=== PATIENT | male | born 1965 | race Caucasian/White ===

== ENCOUNTER 2016-07-09 22:04 | Inpatient (IN) | payer OTHER ==
--- NOTE | ~2016-07-09 | CR173 ---
[facility] A Service of [facility] [place] & [facility] RADIOLOGY TEXT RESULTS PATIENT: UZMA ANAYA LOCATION: [facility] [id number] : [birth year] UNIT #: [id number] AGE: [address]: Martir Loja MD SEX: M ORDER DR: [id number] [facility] [address] [place], [place] [address] [id number] MR#: [id number] #: [id number] NAME: UZMA ANAYA : 1965 SEX: M STUDY DATE/TIME: 07/10/2016 4:53 UNIT: [facility] ROOM: 06757 STUDY DESCRIPTION: CR Knee 3 Views Rt Attending Physician: Martir Loja M.D. Ordering Physician: Israel Kumar Aprn Primary Care Physician: Primary Care Physician No MEDICAL IMAGING REPORT This report is preliminary unless electronic signature is present EXAM Right knee series, 07/10/2016 HISTORY 51-year-old male in the ED status post machete laceration to the knee about 10 days ago. Increased inflammation and drainage. TECHNIQUE Three-view right knee series FINDINGS The examination shows severe soft tissue swelling in the prepatellar region where a superficial laceration is visible. No visible soft tissue gas or radiopaque soft tissue foreign body. No visible joint effusion. No osseous abnormality. IMPRESSION Prepatellar soft tissue swelling. Dictated by... Balta Robin M.D. THIS IS AN ELECTRONICALLY VERIFIED REPORT Balta Robin M.D. at 07/10/2016 9:58 PM Betty TD: 07/10/2016 09:26 JOB #: [id number] MEDICAL IMAGING REPORT Page 1 of 1 COPY
--- NOTE | ~2016-07-09 | CO ---
Unit #: [id number] #: [id number] Patient: UZMA ANAYA [id number] [address] [address] [id number] Jan MR#: [id number] NAME: UZMA ANAYA ROOM: 17480 Age: 51 Sex: M Admission Date: 07/10/2016 : 1965 Attending Physician: Martir Loja M.D. Consultation Date: 07/10/2016 CONSULTATION REPORT REASON FOR CONSULTATION Infected right knee laceration. HISTORY OF PRESENT ILLNESS This is a 51-year-old male with an insignificant past medical history, was admitted with wound on the right knee for 10 days, which he sustained while building a machete. He was apparently intoxicated at that time. He did not take care of the wound. The wound now has worsened with some drainage and exudate and some pain, for which he came to the hospital where he was started on IV vancomycin and Zosyn. ID was consulted. Orthopedics has been consulted as well for possible debridement. I was asked to see him for antibiotic recommendations. He does not have any fever, chills, or leukocytosis. PAST MEDICAL HISTORY Not significant. PAST SURGICAL HISTORY Carpal tunnel release. SOCIAL HISTORY He drinks alcohol frequently on a daily basis as well as uses tobacco daily. No history of drug use. ALLERGIES None. HOME MEDICATIONS None. FAMILY HISTORY Negative. SYSTEMIC REVIEW Right knee ulcer with pain and drainage. There is no fever, chills, or any other systemic symptoms. PHYSICAL EXAMINATION GENERAL: Reveals a young white male, who is awake and alert. No acute distress. He is very unkempt with poor personal hygiene. VITAL SIGNS: Stable. Temperature 97, pulse 90, respiration 18, blood pressure 120/80. HEENT: Oral hygiene is extremely poor. LUNGS: Clear to percussion and auscultation. Unit #: [id number] #: [id number] Patient: UZMA ANAYA HEART: Sounds normal. There are no murmurs. ABDOMEN: Soft and nontender without organomegaly or ascites. Bowel sounds normal. NEUROLOGIC: Nonfocal. EXTREMITIES: Exam of the right knee reveals a 4 to 5 cm x 2 cm open wound with purulent drainage, necrosis on the edges, but no obvious cellulitis beyond the margins of the wound. There is no fluctuation. There is no evidence of any knee effusion or lymphangitis. DIAGNOSTIC STUDIES IMAGING STUDIES: X-ray of the knee shows prepatellar soft tissue swelling. LABORATORY RESULTS: Lactic acid 1.4. Wound culture is pending. Sodium 137, potassium 2.7, chloride 107, CO2 of 20, glucose 113, BUN 17, creatinine 1. Liver function tests are normal. White count is 5.4, hemoglobin 12.6, hematocrit 38.9, platelets 297. IMPRESSION Main issue is infected wound on the right knee without any evidence of abscess or cellulitis. No signs of systemic toxicity were noted. RECOMMENDATIONS Awaiting orthopedic opinion regarding debridement, which I would recommend. I agree with vancomycin and Zosyn. Once debridement is done, cultures were obtained. We will be able to recommend more specific antimicrobial therapy. Dictated by... Cyndie Piedra/eladio TD: 07/11/2016 06:50 JOB #: [id number] CONSULTATION REPORT Page 1 of 1 X Stephon Peraza MD X CONSULTATION REPORT
--- NOTE | ~2016-07-09 | HP ---
Unit #: [id number] #: [id number] Patient: UZMA ANAYA [id number] [address] [address] [id number] I MR#: [id number] NAME: UZMA ANAYA ROOM: 11786 Age: 51 Sex: M Admission Date: 07/10/2016 : 1965 Attending Physician: Martir Loja M.D. Primary Care Physician: No Primary Care Physician HISTORY AND PHYSICAL REASON FOR ADMISSION Right knee cellulitis, status post injury with machete. HISTORY OF PRESENT ILLNESS The patient is a 51-year-old male, no prior medical history, no real primary care physician, states he drinks alcohol as much as possible on a daily basis. He was acutely intoxicated. Apparently, he was yielding a machete around several days ago. He cut his right knee inadvertently, began bleeding. He stated that afterwards it stopped bleeding but the gash remained open. He noticed there was active push and/or surrounding erythema earlier yesterday evening. Therefore, he presented to the ER for further evaluation. PAST MEDICAL HISTORY None. PAST SURGICAL HISTORY History of carpal tunnel. SOCIAL HISTORY Daily alcohol use, in his words "as much as possible." Daily tobacco use. No illicit drug use. ALLERGIES No known drug allergies. HOME MEDICATIONS None. FAMILY HISTORY Reviewed and noncontributory or non-pertinent. REVIEW OF SYSTEMS Please see HPI. Twelve point otherwise negative except for those positives noted in the HPI. PHYSICAL EXAMINATION VITAL SIGNS: Temperature 97.9, pulse 98, respiratory rate 18, blood pressure 124/98. GENERAL APPEARANCE: 51-year-old male in no acute distress. HEAD EXAM: Atraumatic, normocephalic. EAR EXAM: Tympanic membranes do not reveal any erythema or injection. NECK EXAM: Supple. CVS: S1, S2. Tachycardic without murmur. Unit #: [id number] #: [id number] Patient: UZMA ANAYA RESPIRATORY: Coarse breath sounds are noted bilaterally. GI/ABDOMEN: Nontender, nondistended. EXTREMITIES: Lower extremity exam - on right knee, there is a laceration approximately 4-5 cm with approximately 1-2 cm open with purulent drainage. Surrounding erythema also noted. Left knee appears normal. No calf tenderness bilaterally. NEUROLOGICAL EXAM: The patient is A and O x3. No evidence of any focal nerve deficits. PSYCHIATRIC EXAM: The patient demonstrates normal mood and affect. ER COURSE The patient received vancomycin, Zosyn, potassium protocol. Normal saline bolus was given. X-rays performed in the ER does reveal severe soft tissue swelling of the prepatellar region. Superficial laceration is visible. No gaseous foreign body, no joint effusion, no osseous abnormalities were commented on. Initial laboratory studies also yielded a BMP with a potassium of 2.7, glucose 113. Blood alcohol level 102. Wound cultures have already been sent, currently pending. Lactic acid level 1.4. CBC shows white count of 5.4, hemoglobin 12.6. INITIAL IMPRESSION 1. Right knee cellulitis. 2. Right knee open laceration with machete. 3. Acute alcohol intoxication. 4. Alcohol abuse. 5. Hypokalemia. PLAN Admission to Med/Surg floor. Orthopedic consultation, infectious disease consultation. CIWA protocol may be administered but for now will use scheduled Librium as well as Ativan p.r.n., daily banana bag. Routine laboratory studies. Replete potassium. Blood cultures. Possible consideration into CT and/or MRI imaging of the need to ascertain underlying osteomyelitis. However, this will be per hospital course and/or management by orthopedic and infectious disease services. Plans have been reviewed with patient in detail. He expresses understanding and agreement. Dictated by Cyndie Gibson/orion TD: 07/10/2016 12:05 JOB #: [id number] Unit #: [id number] #: [id number] Patient: UZMA ANAYA HISTORY AND PHYSICAL Page 1 of 1 X Martir Loja MD HISTORY AND PHYSICAL
[2016-07-10 05:18] LABS: BASOPHIL# 0.1 X10e3 (0-0.3); BASOPHIL% 0.9 % (0-2.5); EOSINOPHIL# 0.2 X10e3 (0-0.7); EOSINOPHIL% 3.9 % (0.0-7.0); HEMATOCRIT 38.9 % (38.0-50.0); HEMOGLOBIN 12.6 gm/dL (13.0-16.0); LYMPHOCYTE# 1.4 X10e3 (1.0-3.5); LYMPHOCYTE% 25.5 % (17.0-45.0); MEAN CELL VOLUME 95.1 FL (83-96); MEAN CORPUSCULAR HEMOGLOBIN 30.7 PG (28-34); MEAN CORPUSCULAR HGB CONC 32.3 g/dL (30-36); MONOCYTE# 0.5 X10e3 (0-1.0); MONOCYTE% 9.1 % (3.0-12.0); NEUTROPHIL# 3.3 X10e3 (1.5-7.1); NEUTROPHIL% 60.6 % (40-75); PLATELET COUNT 297 X10e3 (140-420); RED BLOOD COUNT 4.09 X10e (3.90-5.60); RED CELL DISTRIBUTION WIDTH 15.5 % (11.0-15.5); WHITE BLOOD COUNT 5.4 X10e3 (4.0-10.5)
[2016-07-10 05:22] LABS: DIFF IND NO
[2016-07-10 06:17] LABS: ALBUMIN SERUM 3.2 g/dL (3.5-5.0); BILIRUBIN, DIRECT 0.1 mg/dL (0.0-0.2); BILIRUBIN,INDIRECT 0.6 mg/dL (0.0-0.9); BILIRUBIN,TOTAL 0.7 mg/dL (0.2-2.0); GLOM FILT RATE Estimated 86.8 mL/min (>60); PROTEIN TOTAL SERUM 6.5 g/dL (6.0-8.3)
[2016-07-10 06:19] LABS: POTASSIUM 2.7 mmol/L (3.5-5.1)
[2016-07-10] MEDS ORDERED: NO MEDICATIONS (11:06)
== END 2016-07-10 17:45 | disposition left against medical advice (07) | DRG 605 ==
LOC: CED 22:04 → CEDOF 07-10 07:40
PROVIDERS: Nurse Practitioner Family
DX: S81.011A Laceration without foreign body, right knee, initial encounter (principal); E87.6 Hypokalemia; L08.9 Local infection of the skin and subcutaneous tissue, unspecified; W45.8XXA Other foreign body or object entering through skin, initial encounter; W26.0XXA Contact with knife, initial encounter; F17.210 Nicotine dependence, cigarettes, uncomplicated; F10.120 Alcohol abuse with intoxication, uncomplicated; Y90.5 Blood alcohol level of 100-119 mg/100 ml
CPT/HCPCS: 36415; 73562; 80048; 80076; 83605; 85025; 87040; 87070; 87077; 87186; 87205; 90715; 99285; G0480; J2060; J2543; J3370